=== PATIENT | male | born 1960 | race Caucasian/White ===

== ENCOUNTER 2020-02-16 05:26 | Day surgery (SDC) | payer OTHER ==
[2020-02-09 12:04] LABS: BASOPHILS # (AUTO) 0.1 X10'3 (0-0.2); BASOPHILS % (AUTO) 1.1 % (0-1); EOSINOPHILS # (AUTO) 0.3 X10'3 (0-0.9); EOSINOPHILS % (AUTO) 4.6 % (0-6); LYMPHOCYTES % (AUTO) 30.9 % (21-51); MEAN CORPUSCULAR HEMOGLOBIN 32.7 PG (27.0-31.0); MEAN CORPUSCULAR HGB CONC 33.8 g/dL (33.0-36.5); MEAN CORPUSCULAR VOLUME 96.7 FL (78-98); MEAN PLATELET VOLUME 9.1 FL (7.4-10.4); MONOCYTES # (AUTO) 0.7 X10'3 (0-0.9); MONOCYTES % (AUTO) 10.1 % (2-12); NEUTROPHILS # (AUTO) 3.5 X10'3 (1.8-7.7); NEUTROPHILS % (AUTO) 53.3 % (42-75); PRE OP HEMATOCRIT 44.4 % (42.0-52.0); PRE OP PLATELET COUNT 256 X10'3 (140-440); RED BLOOD COUNT 4.59 X10'6 (4.70-6.10); RED CELL DISTRIBUTION WIDTH 13.2 % (11.5-14.5)
[2020-02-09 12:17] LABS: ALBUMIN 3.8 G/DL (3.4-5.0); ALKALINE PHOSPHATASE 84 IU/L (46-116); BLOOD UREA NITROGEN 14 MG/DL (7-18); BUN/CREATININE RATIO 13.3 (5.4-32.0); CALCIUM 9.2 MG/DL (8.5-10.1); CHLORIDE 104 MMOL/L (99-107); CREATININE 1.05 MG/DL (0.60-1.10); PRE OP ALT 26 U/L (30-65); PRE OP ANION GAP 7 (8-16); PRE OP AST 16 U/L (10-37); PRE OP BILIRUB, TOTAL 0.9 MG/DL (0.0-1.0); PRE OP GLUCOSE 101 MG/DL (70-104); PRE OP POTASSIUM 4.8 MMOL/L (3.4-5.1); PRE OP SODIUM 140 MMOL/L (135-145); TOTAL CARBON DIOXIDE 29.5 MMOL/L (24-32); TOTAL PROTEIN 7.6 G/DL (6.4-8.2); eGFR 72 ML/MIN
[~2020-02-16] VITALS: Ht 182.9 cm; Wt 107.8 kg
[2020-02-16] VITALS (11 sets, daily range): BP systolic 121–160; BP diastolic 71–88
[~2020-02-16 05:26] MED LIST: ALLO300T8 PO; IBUP-24 PO; INDO50CA96 PO; VALA500T41 PO; ringers solution, lacted 1,000 ML IV SCH
[2020-02-16] MEDS ORDERED: ceFAZolin 2gm in dextrose, iso 50 ML IV ONE (05:30)
[2020-02-16] MEDS ORDERED: famotidine 20mg tablet PO ONE (05:30)
[2020-02-16] MEDS ORDERED: LIDOcaine 1% 30ml preserv. free vial ONE (06:43)
[2020-02-16] MEDS ORDERED: BUPIVAcaine/PF 2.5 mg/ml (0.25%) 30ml vial ONE (06:43)
[2020-02-16] MEDS ORDERED: midazolam 2 mg/2 ml injection ONE (07:23)
[2020-02-16] MEDS ORDERED: fentaNYL/PF 50MCG/1 ML 2ML syringe ONE (07:23)
[2020-02-16] MEDS ORDERED: propofol inj 20 ML IV ONE (07:24)
[2020-02-16] MEDS ORDERED: rocuronium 10mg/ml inj IV ONE ×2 (07:24→08:15)
[2020-02-16] MEDS ORDERED: meperidine/PF 25mg/ml syringe IV PRN ×2 (07:30)
[2020-02-16] MEDS ORDERED: proCHLORperazine 10 MG/2 ml inj IV PRN (07:30)
[2020-02-16] MEDS ORDERED: ondansetron/PF 4mg/2ml inj IV PRN (07:30)
[2020-02-16] MEDS ORDERED: ringers solution, lacted 1,000 ML IV SCH (07:30)
[2020-02-16] MEDS ORDERED: morphine 4 MG/ML inj SYRINge IV PRN (07:30)
[2020-02-16] MEDS ORDERED: morphine 2 MG/ML inj. syringe IV PRN (07:30)
[2020-02-16] MEDS ORDERED: dexamethasone sod phosphate 4mg/ml inj. ONE (07:46)
[2020-02-16] MEDS ORDERED: ondansetron/PF 4mg/2ml inj ONE (09:10)
[2020-02-16] MEDS ORDERED: neostigmine methylsulfate 1 MG/ML 10ml vial ONE ×2 (09:11→09:13)
[2020-02-16] MEDS ORDERED: glycopyrrolate 0.2mg/ml inj ONE (09:13)
--- NOTE | 2020-02-16 09:25 | NUR ---
Received from OR via BED , accompanied by Anesthesiologist DR ESPINOZA and report given by Anesthesiolgist. PATIENT WAKING UP, DENIES PAIN, V/S WNL, NEUROVASCULAR CHECKS INTACT, 20G PIV LUE, SCD ON, BANDAIDS TO LAP SIGHTS OF ABDOMEN CDI.
[2020-02-16] MEDS: meperidine/PF 25mg/ml syringe IV PRN ×3 (09:28→10:07)
[2020-02-16] MEDS ORDERED: HYDROcodone/acetaminophen 5mg/325mg tablet PO PRN ×2 (09:35)
--- NOTE | 2020-02-16 10:55 | NUR ---
PATIENT A&OX4, DENIES PAIN, V/S WNL, NEUROVASCULAR CHECKS INTACT, 20G PIV LUE D/C, SCD OFF, BANDAIDS TO LAP SIGHTS OF ABDOMEN CDI. pATIENT HAS VOIDED. i HAVE REVIEWED D/C INSTRUCTIONS WITH PATIENT AND HE HAS VERBALIZED UNDERSTANDING. PATIENT D/C HOME WITH ALL BELONGINGS AND HIS GAVE TRANSPORT HOME.
== END 2020-02-16 10:55 | disposition home or self-care (01) ==
LOC: PAS 05:26
PROVIDERS: ATTEND Surgery
DX: K40.90 Unilateral inguinal hernia, without obstruction or gangrene, not specified as recurrent (principal); K42.9 Umbilical hernia without obstruction or gangrene; M10.9 Gout, unspecified; I10 Essential (primary) hypertension; Z20.828 Contact with and (suspected) exposure to other viral communicable diseases; Z79.899 Other long term (current) drug therapy; Z87.891 Personal history of nicotine dependence; Z85.828 Personal history of other malignant neoplasm of skin; Z98.890 Other specified postprocedural states; Z80.42 Family history of malignant neoplasm of prostate; Z82.49 Family history of ischemic heart disease and other diseases of the circulatory system
CPT/HCPCS: 36415; 49585; 49650; 80053; 82948; 85025; 87635; 93005; C1781; J1100; J2001; J2175; J2250; J2405; J2704; J2710; J3010; J3490; J7120; S2900; A4215; A4618